=== PATIENT | female | born 1990 | race Two or more races ===

== ENCOUNTER 2022-11-29 10:01 | Emergency (ER) | payer OTHER ==
[2022-11-29] MEDS ORDERED: KETOROLAC TROMETHAMINE 30 MG/1 ML VIAL IM ONE (10:21)
[2022-11-29] MEDS ORDERED: ACETAMINOPHEN 500 MG TABLET (FP) PO ONE (10:21)
[2022-11-29 10:42] VITALS: BP 114/78; PULSE 80; RESP 20; TEMP 98.2; BMI 25.7
[2022-11-29] MEDS ORDERED: ACETAMINOPHEN 325 MG TABLET (FP) ONE (11:21)
[2022-11-29] MEDS ORDERED: KETOROLAC TROMETHAMINE 30 MG/1 ML VIAL ONE (11:22)
[2022-11-29 14:15] LABS: THROAT:GRP A STREP NOT DETECTED (NOTDETECTED)
== END 2022-11-29 12:35 | disposition home or self-care (01) ==
LOC: FER 10:01
PROC: 3E023GC Introduction of Other Therapeutic Substance into Muscle, Percutaneous Approach (ICD-10-PCS; principal; 2022-11-29)
DX: R51.9 Headache, unspecified (principal); J06.9 Acute upper respiratory infection, unspecified
CPT/HCPCS: 0241U-QW; 87651; 99284-25